=== PATIENT | male | born 1965 | race Caucasian/White ===

== ENCOUNTER 2020-11-16 11:36 | Emergency (ER) | payer OTHER, SELFPAY ==
--- NOTE | 2020-11-16 11:44 | ED.MALEGU ---
HPI - Male Genitourinary General Chief complaint: Urogenital-Male Stated complaint: POS UTI Time Seen by Provider: 11/16/20 11:48 Source: patient and RN notes reviewed Mode of arrival: ambulatory Limitations: no limitations History of Present Illness HPI Narrative: 55 yo male presents to the [facility] with 3 to 4 days of urinary symptoms. Patient states I think I have UTI. Patient states that he has had some burning, urgency and hesitancy. Denies any abdominal pain, chest pain, fevers. Denies any concerns for STDs. Related Data Home Medications Medication Instructions Recorded Confirmed alprazolam 0.25 mg PO BID 11/16/20 11/16/20 bupropion HCl 100 mg PO DAILY 11/16/20 11/16/20 buspirone 5 mg PO BID 11/16/20 11/16/20 carisoprodol 350 mg PO TID 11/16/20 11/16/20 carvedilol 6.25 mg PO BID 11/16/20 11/16/20 fentanyl 1 patch TRANSDERMAL Q72H 11/16/20 11/16/20 lisinopril 5 mg PO DAILY 11/16/20 11/16/20 naldemedine [Symproic] 0.2 mg PO DAILY 11/16/20 11/16/20 oxycodone 15 mg PO Q4H PRN 11/16/20 11/16/20 rimegepant [Nurtec ODT] 75 mg PO ONCE PRN 11/16/20 11/16/20 testosterone cypionate 200 mg IM WEEKLY 11/16/20 11/16/20 Allergies Allergy/AdvReac Type Severity Reaction Status Date / Time No Known Allergies Allergy Verified 11/16/20 11:50 Review of Systems Review of Systems: All systems reviewed & are unremarkable except as noted in HPI and below Constitutional: Constitutional: Reports no additional constitutional complaints and Denies chills Eyes: Eyes: Reports no additional eye complaints ENT: Reports system reviewed and no additional complaints, except as documented Cardiovascular: Cardiovascular: Reports no additional cardiovascular complaints Respiratory: Respiratory: Reports no additional respiratory complaints Gastrointestinal: Gastrointestinal: Reports no additional gastrointestinal complaints and Denies abdominal pain Genitourinary: Genitourinary: Reports as per HPI, Reports oliguria, Reports dysuria, Denies flank pain and Reports urinary frequency Musculoskeletal: Musculoskeletal: Reports no additional musculoskeletal complaints and Denies back pain Integumentary/Breasts: Skin/Breast: Reports system reviewed and no additional complaints, except as docu Neurologic: Reports system reviewed and no additional complaints, except as documented Psychiatric: Psychiatric: Reports no additional psychiatric complaints Allergic/Immunologic: Allergic/Immunologic: Reports no additional allergic/immunologic complaints [facility] Past Medical History Medical History (Updated 11/16/20 @ 17:57 by Diana Solis) Anxiety Hypertension Surgical History Surgical History H/O neck surgery Family History Family History Grandparent Carcinoma of colon Other Depression Hypertension Social History Social History Smoking status: Never smoker Alcohol intake: current Comments At the time of my signature, I reviewed and agree with the nursing past medical, surgical, social, and family history. There is no relevant family history pertinent to the patient complaint. Exam Const: General: cooperative, healthy appearing, comfortable, no acute distress, well developed and alert HENMT: Head: normal to inspection Ears: hearing grossly normal bilaterally General nose exam: Normal external nose present Eyes: General: appearance normal, both eyes and all related structures Neck: Neck: normal visual inspection, full ROM, no lymphadenopathy, no meningeal signs and trachea midline Chest: Chest palpation & inspection: normal inspection of the chest Resp: Effort & Inspection: normal respiratory effort and able to speak in complete sentences Auscultation: clear to auscultation bilaterally Cardio: Rate: regular rate Rhythm: regular rhythm GI: Inspection: normal to insp
[2020-11-16 11:45] VITALS: BP 140/97; PULSE 94; RESP 16; TEMP 37.3; O2SAT 98
[2020-11-16 11:54] VITALS: BP 140/97; PULSE 94; RESP 16; TEMP 37.3; O2SAT 98
== END 2020-11-16 12:09 | disposition home or self-care (01) ==
PROVIDERS: Emergency Provider Nurse Practitioner
DX: R30.0 Dysuria (principal); F41.9 Anxiety disorder, unspecified; I10 Essential (primary) hypertension
CPT/HCPCS: 81003; 99202; G0463

== ENCOUNTER 2021-03-07 00:08 | Emergency (ER) | payer OTHER, SELFPAY ==
--- NOTE | ~2021-03-07 | XR_ITS ---
EXAMINATION: XR chest 1V portable DATE: 03/07/2021 00:43 INDICATION: Palpitations TECHNIQUE: frontal view of the chest was obtained. COMPARISON: Chest radiograph dated 05/07/2012 FINDINGS: The lungs are now clear with no focal airspace opacities, pulmonary edema, pleural effusion or pneumo thorax. The cardiomediastinal silhouette is normal. Instrumented anterior and posterior cervical spin al fusion. IMPRESSION: 1. No acute cardiopulmonary disease. Reviewed, dictated and finalized at location A.
[2021-03-07 00:22] VITALS: BP 148/90; PULSE 90; RESP 18; TEMP 36.6; O2SAT 98
--- NOTE | 2021-03-07 00:32 | ECG_ITS ---
Measurements Intervals [place] Rate: 85 P: 56 IA: 157 QRS: 52 QRSD: 107 T: 32 QT: 370 QTc: 440 Interpretive Statements SINUS RHYTHM DELAYED PRECORDIAL R/S TRANSITION ST ELEVATION IN ANTEROLAT/HIGH LAT LEADS- PROBABLY EARLY REPOLARIZATION ABNORMALITY BORDERLINE ECG Electronically Signed On 03-07-2021 6:36:36 CDT by Blade Cazares D.O.
[2021-03-07] MEDS: SODIUM CHLORIDE 0.9% IV 1,000 ML 999 ML IV CONT (00:54)
[2021-03-07 01:01] LABS: Basophils Absolute Auto 0.1 K/mm3 (0.0-0.1); Basophils Percent Auto 0.7 % (0.2-1.2); Eosinophils Absolute Auto 0.3 K/mm3 (0-0.3); Eosinophils Percent Auto 3.9 % (0-4.4); Hematocrit 50.4 % (42.0-52.0); Hemoglobin 17.1 g/dL (14.0-18.0); Immature Granulocyte Absolute 0.03 K/mm3 (0.00-0.031); Immature Granulocyte Percent A 0.4 % (0-0.5); Lymphocytes Absolute Auto 1.94 K/mm3 (0.9-3.2); Lymphocytes Percent Auto 25.2 % (18.3-44.2); Mean Corpuscular HGB Conc 33.9 g/dl (32-36); Mean Corpuscular Volume 91.5 fl (80-100); Mean Platelet Volume 9.8 fl (7.4-10.4); Monocytes Absolute Auto 0.8 K/mm3 (0.1-0.6); Monocytes Percent Auto 10.4 % (2.6-8.5); Neutrophils Absolute Auto 4.6 K/mm3 (1.3-6.7); Neutrophils Percent Auto 59.4 % (45.5-73.1); Platelet Count Result 297 k/mm3 (150-375); Red Blood Count 5.51 M/mm3 (4.6-6.20); Red Cell Distribution Width 13.2 % (11.5-14.5); White Blood Count 7.7 K/mm3 (4.5-10.0)
[2021-03-07 01:12] LABS: Partial Thromboplastin Time 26.6 SECONDS (22.3-36.8); Prothrombin Time 12.9 Seconds (11.1-14.7)
[2021-03-07 01:15] LABS: D Dimer 0.33 ug/mL (<0.48)
[2021-03-07 01:48] LABS: Alanine Aminotransferase 60 U/L (4-50); Albumin Level 4.3 g/dL (3.5-5.1); Alkaline Phosphatase 46 U/L (38-126); Anion Gap 8 mmol/L (8-16); Aspartate Amino Transferase 37 U/L (17-59); Bilirubin,Total 0.7 mg/dL (0.2-1.3); Blood Urea Nitrogen 18 mg/dL (9-20); Calcium 10.1 mg/dL (8.4-10.2); Carbon Dioxide 31 mmol/L (22-30); Chloride 99 mmol/L (98-107); Estimated CRCL calculation 51 ml/min; Estimated Glomerular Filt Rate 45; Glucose 107 mg/dL (65-110); Lipase 169 U/L (23-300); Magnesium 1.7 mg/dL (1.6-2.3); Potassium 4.1 mmol/L (3.4-5.0); Sodium 138 mmol/L (137-145)
[2021-03-07 01:58] LABS: Troponin I < 0.012 ng/mL (0.000-0.034)
--- NOTE | 2021-03-07 02:19 | ED.ANXIETY ---
HPI - Anxiety General Chief Complaint: Anxiety Stated Complaint: panic attack Time Seen by Provider: 03/07/21 00:14 Source: patient Mode of arrival: ambulatory Limitations: no limitations History of Present Illness HPI narrative: 55 year old male with history of HTN, anxiety and chronic pain complains of sudden onset of panic attack with central chest pain, palpiations [employer]; took xanax at home without relief. States not out of any of his medications. Also complains of shortness of breath. No fever, no hemoptysis. MD complaint: anxiety, shortness of breath and other (chest pain) Onset (ago): hour(s) (2 hours) Symptoms: chest pain Severity: severe Quality: constant Place: home History of similar episodes: Yes Associated symptoms: chest pain, shortness of breath, palpitations and diaphoresis Related Data Home Medications Medication Instructions Recorded Confirmed alprazolam 0.25 mg PO BID 11/16/20 11/16/20 bupropion HCl 100 mg PO DAILY 11/16/20 11/16/20 buspirone 5 mg PO BID 11/16/20 11/16/20 carisoprodol 350 mg PO TID 11/16/20 11/16/20 carvedilol 6.25 mg PO BID 11/16/20 11/16/20 fentanyl 1 patch TRANSDERMAL Q72H 11/16/20 11/16/20 lisinopril 5 mg PO DAILY 11/16/20 11/16/20 naldemedine [Symproic] 0.2 mg PO DAILY 11/16/20 11/16/20 oxycodone 15 mg PO Q4H PRN 11/16/20 11/16/20 rimegepant [Nurtec ODT] 75 mg PO ONCE PRN 11/16/20 11/16/20 testosterone cypionate 200 mg IM WEEKLY 11/16/20 11/16/20 Allergies Allergy/AdvReac Type Severity Reaction Status Date / Time No Known Allergies Allergy Verified 11/16/20 11:50 Review of Systems Review of Systems: All systems reviewed & are unremarkable except as noted in HPI and below (HPI) Constitutional: Comments: no fever, no chills no weight loss Cardiovascular: Comments: positive for palpitations, chest pain, no arm pain Respiratory: Comments: positive for shortness of breath, no cough no wheezing Gastrointestinal: Comments: no vomiting, no abdominal pain, no diarrhea Musculoskeletal: Comments: no joint swelling, no joint pain Integumentary/Breasts: Comments: no rashes, no itching Neurologic: Comments: positive for headache, negative for focal weakness and confusiosn Psychiatric: Psychiatric: Reports anxiety Comments: denies SI/HI [facility] Past Medical History Medical History (Updated 03/08/21 @ 00:01 by Sharron Greene) Anxiety Hypertension Surgical History Surgical History H/O neck surgery Family History Family History Grandparent Carcinoma of colon Other Depression Hypertension Social History Social History Smoking status: Never smoker Alcohol intake: current Exam Const: General: healthy appearing, no acute distress and alert Limitations: no limitations Other: afebirle, answering all questions without difficulty HENMT: Mouth: Yes Normal oral and palatal mucosa present and Yes moist mucous membranes Throat: posterior oropharynx normal and uvula midline Eyes: Conjunctivae: conjunctivae normal Pupils: Equal, round and reactive pupils present EOM: EOMs intact bilaterally Neck: Neck: no lymphadenopathy and no meningeal signs Resp: Effort & Inspection: labored Auscultation: clear to auscultation bilaterally Cardio: Rate: regular rate Rhythm: regular rhythm GI: GI Palp: Yes Soft to palpation Other: no tenderness, no rebound, no gaurding : General: Yes bladder normal to palpation and Yes no CVA tenderness Skin: General skin exam: normal color Rashes: no rashes Other: no pallor, no jaundice Neuro: General: patient oriented x3, no focal motor deficits and CN's II-XI intact bilaterally Speech: normal speech Extrem: General: no clubbing, cyanosis or edema and no pedal edema Other: calf size equal bilaterally Psych: Appearance: grossly normal Affect: Anxious affect present Course Co
[2021-03-07 02:37] VITALS: BP 119/85; PULSE 82; RESP 18; O2SAT 98
== END 2021-03-07 02:43 | disposition home or self-care (01) ==
PROVIDERS: Emergency Provider Emergency Medicine
DX: F41.9 Anxiety disorder, unspecified (principal); R00.2 Palpitations; I10 Essential (primary) hypertension; G89.29 Other chronic pain; R94.31 Abnormal electrocardiogram [ECG] [EKG]
CPT/HCPCS: 36415; 71045; 80053; 83690; 83735; 84443; 84484; 85025; 85380; 85610; 85730; 93005; 99284; J7030

== ENCOUNTER 2023-03-10 09:13 | Emergency (ER) | payer OTHER, SELFPAY ==
[2023-03-10 09:31] VITALS: BP 116/71; PULSE 83; RESP 16; TEMP 37.2; O2SAT 97
--- NOTE | 2023-03-10 10:26 | ED.GENADULT ---
HPI - General Adult General Chief complaint: Upper Respiratory Infection Stated complaint: cold,light headed Source: patient Mode of arrival: ambulatory Limitations: no limitations History of Present Illness HPI narrative: Patient presents for evaluation of hoarse voice. He states he noted a scratchy throat Six days ago. He then developed some minor aches and a headache, which is not unusual for him, as he has a history of migraines. He had some pain with swallowing but that has improved. He spent last Thursday and the most recent Thursday resting. He denies any fever, chills, nausea, vomiting, shortness of breath. He developed some sinus congestion but states that symptoms are consistent with those he normally has with allergies. No recent sick contacts. He took some nyquil last night. He smokes marijuana but not cigarettes. Related Data Home Medications Medication Instructions Recorded Confirmed alprazolam 0.25 mg tablet 0.25 mg PO BID 11/16/20 03/10/23 carisoprodol 350 mg tablet 350 mg PO TID 11/16/20 03/10/23 carvedilol 6.25 mg tablet 6.25 mg PO BID 11/16/20 03/10/23 fentanyl 50 mcg/hr transdermal 1 patch transdermal Q72H 11/16/20 03/10/23 patch lisinopril 5 mg tablet 5 mg PO DAILY 11/16/20 03/10/23 oxycodone 15 mg tablet 15 mg PO Q4H PRN Back Pain 11/16/20 03/10/23 rimegepant 75 mg disintegrating 75 mg PO ONCE PRN Migraine Headache 11/16/20 03/10/23 tablet (Nurtec ODT) testosterone cypionate 200 mg/mL 200 mg IM WEEKLY 11/16/20 03/10/23 intramuscular oil fluoxetine 03/10/23 gabapentin 600 mg tablet mg 03/10/23 Allergies Allergy/AdvReac Type Severity Reaction Status Date / Time No Known Allergies Allergy Verified 03/10/23 09:41 Review of Systems Review of Systems: CONSTITUTIONAL: Denies fever, chills, or sweats. EYES: Denies visual changes, redness, or discharge. ENT: Reports sinus congestion and hoarse voice. Denies sore throat and otalgia CARDIOVASCULAR: Denies chest pain, palpitations, or edema. RESPIRATORY: Reports mild occasional cough(chronic). Denies SOB GASTROINTESTINAL: Denies abdominal pain, nausea, vomiting, or diarrhea. GENITOURINARY: Denies dysuria or hematuria. SKIN: Denies rash or itching. MUSCULOSKELETAL: Reports recent minor body aches, now improved. NEUROLOGIC: Reports recent headache, none currently. Denies numbness, dizziness, or weakness. PSYCHIATRIC: Denies anxiety or depression. 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 HEAD: Normocephalic, atraumatic. EYES: PERRLA and EOMI. ENT: Nares clear, no rhinorrhea or epistaxis. Mucous membranes moist. Posterior pharyngeal erythema without exudate. Uvula is midline. Bilateral TMs pearly farah nonbulging NECK: Supple. No adenopathy or masses. No carotid bruits or JVD CHEST: Clear to auscultation. No respiratory distress. No wheezes rales or rhonchi HEART: Regular rate and rhythm. No murmur heard. Normal peripheral pulses. ABDOMEN: Soft, nontender, nondistended, normal active bowel sounds. EX
== END 2023-03-10 10:29 | disposition home or self-care (01) ==
PROVIDERS: Emergency Provider Nurse Practitioner
DX: J04.0 Acute laryngitis (principal); F12.90 Cannabis use, unspecified, uncomplicated; F41.9 Anxiety disorder, unspecified; I10 Essential (primary) hypertension
CPT/HCPCS: 87081; 87880; 99213; G0463

== ENCOUNTER 2023-05-19 13:42 | Outpatient (CLI) | payer OTHER, SELFPAY ==
--- NOTE | ~2023-05-19 | XR_ITS ---
Left Shoulder Technique: AP and scapular Y views were obtained. Clinical History: Pain Findings: No fracture or dislocation is seen. Osseous alignment is anatomic. The glenohumeral and acr omioclavicular joint spaces are preserved. Soft tissues are unremarkable. Impression: Unremarkable left shoulder radiographs. Reviewed, dictated and finalized at [facility]. [employer] Impression: Unremarkable left shoulder radiographs.
== END 2023-05-19 13:43 | disposition home or self-care (01) ==
LOC: ANHIMG 13:52
PROVIDERS: PCP Family Medicine; Visit Provider Physician Assistant
DX: M25.512 Pain in left shoulder (principal)
CPT/HCPCS: 73030